=== PATIENT | male | born 1980 | race African-American/Black ===

== ENCOUNTER 2018-12-22 12:07 | Emergency (ER) | payer OTHER ==
[2018-12-22] MEDS ORDERED: TETRACAINE HCL 0.5% 4ML OPTH ONE (13:13)
--- NOTE | 2018-12-22 13:30 | ER ---
Nurse's Notes [facility] Name: Vikas Leroy Age: 38 yrs Sex: Male : 1980 Arrival Date: 12/22/2018 Time: 12:10 Bed 15 Private MD: Diagnosis: Headache;Acute glaucoma, left eye Presentation: 12/22 12:30 Presenting complaint: Patient states: Reports left side headache behind eye that aj started when he woke up this AM. Transition of care: patient was not received from another setting of care. Onset of symptoms was December 22, 2018. Risk Assessment: Do you want to hurt yourself or someone else? Patient reports no desire to harm self or others. Initial Sepsis Screen: Does the patient meet any 2 criteria? No. Patient's initial sepsis screen is negative. Does the patient have a suspected source of infection? No. Patient's initial sepsis screen is negative. Care prior to arrival: None. 12:30 Method Of Arrival: Ambulatory 12:30 Acuity: HERNANDO 3 Triage Assessment: 12:32 Headache History: The patient has had previous headaches and this one is different than previous episodes. General: Appears in no apparent distress. comfortable, Behavior is calm, cooperative, appropriate for age. Pain: Complains of pain in left eye, left aspect of posterior pharynx, right aspect of posterior pharynx, left side of forehead, left temporal area, left pentecostalism and left zygomatic area. EENT: Reports pain when swallowing. Neuro: Level of Consciousness is awake, alert, obeys commands, Oriented to person, place, time, situation, Appropriate for age. Respiratory: Airway is patent Respiratory effort is even, unlabored, Respiratory pattern is regular, symmetrical. Derm: Skin is intact, is healthy with good turgor, Skin is pink, warm \T\ dry. normal. Historical: - Allergies: 12:32 No Known Allergies; aj - Home Meds: 12:32 None [Active]; aj - PMHx: 12:32 None; aj - PSHx: 12:32 None; aj - Immunization history:: Adult Immunizations up to date. - Social history:: Smoking status: Patient/guardian denies using tobacco. - Ebola Screening: : Patient negative for fever greater than or equal to 101.5 degrees Fahrenheit, and additional compatible Ebola Virus Disease symptoms Patient denies exposure to infectious person Patient denies travel to an Ebola-affected area in the 21 days before illness onset No symptoms or risks identified at this time. - Family history:: pertinent for migraines. - Hospitalizations: : No recent hospitalization is reported. Screenin:47 Abuse screen: Denies threats or abuse. Denies injuries from another. Nutritional ch screening: No deficits noted. Tuberculosis screening: No symptoms or risk factors identified. Fall Risk None identified. Assessment: 12:50 Reassessment: Patient appears in no apparent distress at this time. Patient and/or family updated on plan of care and expected duration. Pain level reassessed. Patient is alert, oriented x 3, equal unlabored respirations, skin warm/dry/pink. Pain: Complains of pain in top of head, forehead, left eye and left pentecostalism Pain currently is 7 out of 10 on a pain scale. Pain began suddenly. 12:50 Neuro: Level of Consciousness is awake, alert, obeys commands, Oriented to person, ch place, time, situation, Pediatric Genetic Counselor are equal bilaterally Moves all extremities. Full function Gait is steady, Speech is normal, Facial symmetry appears normal, Facial symmetry: tongue is midline, Pupils are PERRLA, Reports headache. Cardiovascular: Reports None. Respiratory: Airway is patent Respiratory effort is even, unlabored, Breath sounds are clear bilaterally. GI: Abdomen is round non-distended. Derm: Skin is pink, warm \T\ dry. 13:47 Reassessment: Patient appears in no apparent distress at this time. No changes from previously documented assessment. Patient and/or family updated on plan of care and expected duration. Pain level reassessed. Patient is alert, oriented x 3, equal unlabored respirations, skin warm/dry/pink. Vital Signs: 12:32 BP 117 / 76; Pulse 88; Resp 19; Temp 98.3; Pulse Ox 97% on R/A; Weight 99.79 kg; Height aj 6 ft. 1 in. (185.42 cm); 13:47 BP 124 / 74; Pulse 69; Resp 15; Temp 98.8; Pulse Ox 99% on R/A; Pain 4/10; ch 12:32 Body Mass Index 29.03 (99.79 kg, 185.42 cm) aj Ana Coma Score: 13:24 Eye Response: spontaneous(4). Verbal Response: oriented(5). Motor Response: obeys rn commands(6). Total: 15. ED Course: 12:10 Patient arrived in ED. rg4 12:32 Triage completed. aj 12:32 Arm band placed on left wrist. Patient placed in an exam room. aj 12:40 Yimi Kelly MD is Attending Physician. rn 12:51 Aziza Thorne, RN is Primary Nurse. 13:29 Renny Fish MD is Referral Physician. rn 13:47 No apparent distress. Resting quietly. ch 13:47 Patient has correct armband on for positive identification. Bed in low position. Call ch light in reach. Side rails up X 1. Pulse ox on. NIBP on. 13:47 No provider procedures requiring assistance completed. Patient did not have IV access ch during this emergency room visit. Administered Medications: No medications were administered Outcome: 13:29 Discharge ordered by . rn 13:47 Discharged to home ambulatory, with family. 13:47 Condition: stable 13:47 Discharge instructions given to patient, family, Instructed on discharge instructions, follow up and referral plans. Demonstrated understanding of instructions, follow-up care, medications. 14:01 Patient left the ED. Signatures: Aziza Thorne, RN Edilma Jarrell ch RN Yimi Chang MD MD rn Joaquin, Henry, RN RN hj Garcia, Rubi rg4
--- NOTE | 2018-12-22 13:30 | EDPHYS ---
Physician Documentation [facility] Name: Vikas Leroy Age: 38 yrs Sex: Male : 1980 Arrival Date: 12/22/2018 Time: 12:10 Bed 15 Private MD: ED Physician Yimi Kelly HPI: 12/22 13:24 This 38 yrs old Black Male presents to ER via Ambulatory with complaints of Headache, rn Redness of Eye. 13:24 The patient complains of pain to the left eye. The patient describes the headache as rn throbbing. Onset: The symptoms/episode began/occurred this morning. Severity of symptoms: At its worst the pain was moderate, in the emergency department the pain has improved. The patient has not experienced similar symptoms in the past. REports pressure and pain behind left eye, + red left eye, no trauma, no focal neurological problem, no hx of migraines. No fever. + mild blurred vision. No drainage.. Historical: - Allergies: 12:32 No Known Allergies; aj - Home Meds: 12:32 None [Active]; aj - PMHx: 12:32 None; aj - PSHx: 12:32 None; aj - Immunization history:: Adult Immunizations up to date. - Social history:: Smoking status: Patient/guardian denies using tobacco. - Ebola Screening: : Patient negative for fever greater than or equal to 101.5 degrees Fahrenheit, and additional compatible Ebola Virus Disease symptoms Patient denies exposure to infectious person Patient denies travel to an Ebola-affected area in the 21 days before illness onset No symptoms or risks identified at this time. - Family history:: pertinent for migraines. - Hospitalizations: : No recent hospitalization is reported. ROS: 13:24 Constitutional: Negative for fever, chills, and weight loss, Eyes: + left eye pain and rn pressure ENT: Negative for injury, pain, and discharge, Neck: Negative for injury, pain, and swelling, Cardiovascular: Negative for chest pain, palpitations, and edema, Respiratory: Negative for shortness of breath, cough, wheezing, and pleuritic chest pain, Abdomen/GI: Negative for abdominal pain, nausea, vomiting, diarrhea, and constipation, MS/Extremity: Negative for injury and deformity, Skin: Negative for injury, rash, and discoloration, Neuro: + headache, negative for weakness/numbness Exam: 13:24 Constitutional: This is a well developed, well nourished patient who is awake, alert, rn and in no acute distress. Head/Face: Normocephalic, atraumatic. Eyes: + left maxwell with conjunctival injection, PERRL, EOMI, intraocular pressure measured 3 times: 49, 42, 40. No corneal defect ENT: MMM, no swelling or exudate Neck: Trachea midline, no thyromegaly or masses palpated, and no cervical lymphadenopathy. Supple, full range of motion without nuchal rigidity, or vertebral point tenderness. No Meningismus. Skin: Warm, dry MS/ Extremity: Pulses equal, no cyanosis. Neurovascular intact. Full, normal range of motion. Equal circumference. Neuro: Awake and alert, GCS 15, oriented to person, place, time, and situation. Cranial nerves II-XII grossly intact. Motor strength 5/5 in all extremities. Sensory grossly intact. Cerebellar exam normal. Normal gait. Vital Signs: 12:32 BP 117 / 76; Pulse 88; Resp 19; Temp 98.3; Pulse Ox 97% on R/A; Weight 99.79 kg; Height aj 6 ft. 1 in. (185.42 cm); 13:47 BP 124 / 74; Pulse 69; Resp 15; Temp 98.8; Pulse Ox 99% on R/A; Pain 4/10; ch 12:32 Body Mass Index 29.03 (99.79 kg, 185.42 cm) aj [place] Coma Score: 13:24 Eye Response: spontaneous(4). Verbal Response: oriented(5). Motor Response: obeys rn commands(6). Total: 15. MDM: 12:40 Patient medically screened. rn 13:16 ED course: Paged Dr. Fish regarding high left intraocular pressure and concern for rn managed care glaucoma.. 13:24 Differential diagnosis: cluster headache, acute glaucoma. Data reviewed: vital signs, rn nurses notes, and as a result, I will discharge patient. Counseling: I had a detailed discussion with the patient and/or guardian regarding: the historical points, exam findings, and any diagnostic results supporting the discharge/admit diagnosis, the need for outpatient follow up, to return to the emergency department if symptoms worsen or persist or if there are any questions or concerns that arise at home. ED course: Spoke with Dr. Fish's office, he requests patient is sent there directly for further evaluation, gave address to patient and family member, explained importance of going straight there. Headache improved. Normal neuro exam, no need for emergent imaging at this point.. Administered Medications: No medications were administered Disposition: 12/22/18 13:29 Discharged to Home. Impression: Headache, Acute glaucoma, left eye. - Condition is Stable. - Discharge Instructions: Glaucoma. - Medication Reconciliation Form, Thank You Letter, Antibiotic Education, Prescription Opioid Use form. - Follow up: Renny Fish MD; When: Upon discharge from the Emergency Department; Reason: Recheck today's complaints, Continuance of care, Re-evaluation by your physician. - Problem is new. - Symptoms have improved. Signatures: Edilma Thurston RN RN aj Nieto, Roman, MD MD rn Joaquin, Henry, RN RN Corrections: (The following items were deleted from the chart) 14:01 13:29 12/22/2018 13:29 Discharged to Home. Impression: Headache; Acute glaucoma, left hj eye. Condition is Stable. Forms are Medication Reconciliation Form, Thank You Letter, Antibiotic Education, Prescription Opioid Use. Follow up: Renny Fish; When: Upon discharge from the Emergency Department; Reason: Recheck today's complaints, Continuance of care, Re-evaluation by your physician. Problem is new. Symptoms have improved. rn
== END 2018-12-22 14:01 | disposition home or self-care (01) ==
LOC: ER 12:07
DX: R51 Headache (principal); H40.89 Other specified glaucoma
CPT/HCPCS: 99283

== ENCOUNTER 2021-12-15 05:16 | Emergency (ER) | payer OTHER ==
[2021-12-15 06:04] LABS: Absolute Lymphocytes (CBC) 1.6 K/uL (0.7-4.9); Hematocrit 39.2 % (39.6-49.0); Lymphocytes % 25.4 % (15.3-44.8); MPV 9.2 fL (7.6-11.3); RBC Red Blood Cell Count 4.13 M/uL (4.33-5.43)
[2021-12-15 06:22] LABS: Potassium 3.9 mmol/L (3.5-5.1); Troponin High Sensitivity 3.6 pg/mL (<58.9)
--- NOTE | 2021-12-15 09:12 | ER ---
Nurse's Notes [facility] Name: Vikas Leroy Age: 41 yrs Sex: Male : 1980 Arrival Date: 12/15/2021 Time: 05:19 Bed 5 Private MD: Diagnosis: Chest pain, unspecified Presentation: 12/15 05:23 Chief complaint: Patient states: "I got chest pain, it feels like I got hungry and I tw5 got that growl". Onset of symptoms is unknown. 05:23 Method Of Arrival: Ambulatory tw5 05:23 Acuity: HERNANDO 2 tw5 05:25 Coronavirus screen: Vaccine status: Patient reports receiving the 2nd dose of the covid tw5 vaccine. [facility] Provider seeing patient in triage. Ebola Screen: Patient negative for fever greater than or equal to 101.5 degrees Fahrenheit, and additional compatible Ebola Virus Disease symptoms Patient denies exposure to infectious person. Patient denies travel to an Ebola-affected area in the 21 days before illness onset. Initial Sepsis Screen: Does the patient meet any 2 criteria? No. Patient's initial sepsis screen is negative. Does the patient have a suspected source of infection? No. Patient's initial sepsis screen is negative. Risk Assessment: Do you want to hurt yourself or someone else? Patient reports no desire to harm self or others. Triage Assessment: 05:23 General: Appears in no apparent distress. Behavior is calm, cooperative, appropriate tw5 for age. Pain: Quality of pain is described as aching, "Feels like I am hungry.". Cardiovascular: Chest pain is located in chest wall. Historical: - Allergies: 05:26 No Known Allergies; tw5 - PMHx: 05:26 None; tw5 - PSHx: 05:26 None; tw5 - Immunization history:: Flu vaccine is not up to date. - Social history:: Smoking status: Smoking status: Patient denies any tobacco usage or history of. Screenin:10 Abuse screen: Denies threats or abuse. Nutritional screening: No deficits noted. ke1 Tuberculosis screening: No symptoms or risk factors identified. Fall Risk No fall in past 12 months (0 pts). No secondary diagnosis (0 pts). IV access (20 points). Ambulatory Aid- None/Bed Rest/Nurse Assist (0 pts). Gait- Normal/Bed Rest/Wheelchair (0 pts) Mental Status- Oriented to own ability (0 pts). Total [place] Fall Scale indicates No Risk (0-24 pts). Assessment: 06:13 Pain: Complains of pain in chest Pain does not radiate. Pain currently is 0 out of 10 ke1 on a pain scale. at worst was 8 out of 10 on a pain scale. level that patient reports is acceptable is 5 out of 10 on a pain scale. Pain began suddenly, Last night. 07:31 Reassessment: Pt sitting up in bed.. Pain: Pain currently is 0 out of 10 on a pain aa5 scale. Neuro: Level of Consciousness is awake, alert, obeys commands, Oriented to person, place, time, situation. Cardiovascular: Rhythm is sinus rhythm. Respiratory: Airway is patent Respiratory effort is even, unlabored, Respiratory pattern is regular, symmetrical. Derm: Skin is dry, Skin is normal, Skin temperature is warm. 07:46 Reassessment: Repeat troponin drawn and sent to lab. aa5 Vital Signs: 05:23 BP 127 / 89; Pulse 69; Resp 18; Temp 98.1; Pulse Ox 96% on R/A; Weight 106.59 kg; tw5 Height 6 ft. 1 in. (185.42 cm); Pain 8/10; 07:32 BP 110 / 81; Pulse 73; Resp 14 S; Pulse Ox 100% on R/A; Pain 0/10; aa5 08:28 BP 114 / 72; Pulse 68; Resp 15; Pulse Ox 100% ; jl7 09:22 BP 115 / 86; Pulse 66; Resp 15; Pulse Ox 100% ; jl7 05:23 Body Mass Index 31.00 (106.59 kg, 185.42 cm) tw5 ED Course: 05:19 Patient arrived in ED. bp1 05:21 Vikas Salguero DO is Attending Physician. ms3 05:24 Triage completed. tw5 05:26 Arm band placed on right wrist. tw5 05:57 Missed attempt(s): 20 gauge in right antecubital area. ke1 05:57 Inserted saline lock: 22 gauge in left antecubital area, using aseptic technique. ke1 06:10 XRAY Chest (1 view) In Process Unspecified. EDMS 06:10 Sebastián Goodwin, KAJAL is Primary Nurse. ke1 06:11 Bed in low position. Call light in reach. Side rails up X 1. ke1 06:11 Client placed on continuous cardiac and pulse oximetry monitoring. NIBP monitoring ke1 applied. library monitor on. Pulse ox on. NIBP on. 06:11 No provider procedures requiring assistance completed. ke1 06:11 Patient maintains SpO2 saturation greater than 95% on room air. ke1 07:43 Attending Physician role handed off by Vikas Salguero DO id2 07:43 Mireya Lemon MD is Attending Physician. ma2 09:11 Young Pan MD is Referral Physician. id2 09:22 IV discontinued, intact, bleeding controlled, No redness/swelling at site. Pressure jl7 dressing applied. Administered Medications: No medications were administered Medication: :22 VIS not applicable for this client. jl7 Outcome: :11 Discharge ordered by . id2 09:22 Discharged to home ambulatory. jl7 09:22 Condition: stable 09:22 Discharge instructions given to patient, Instructed on discharge instructions, follow up and referral plans. Demonstrated understanding of instructions, follow-up care. 09:22 Patient left the ED. jl7 Signatures: Dispatcher [employer] EDMS Ana Lilia Paz, RN RN aa5 Bela Britt RN RN jl7 Mireya Lemon MD MD ma2 Sims, Marcus, DO DO ms3 Monika Ramey Tiffany tw5 Sebastián Goodwin, KAJAL RN ke1
--- NOTE | 2021-12-15 09:12 | EDPHYS ---
Physician Documentation [facility] Name: Vikas Leroy Age: 41 yrs Sex: Male : 1980 Arrival Date: 12/15/2021 Time: 05:19 Bed 5 Private MD: ED Physician Mireya Lemon HPI: 12/15 05:26 This 41 yrs old Black Male presents to ER via Ambulatory with complaints of Chest Pain ms3 > 30 y/o. 05:26 The patient or guardian reports chest pain that is located primarily in the substernal ms3 area. The pain does not radiate. Associated signs and symptoms: Pertinent negatives: cough, diaphoresis, nausea, shortness of breath, vomiting. The chest pain is described as aching. Duration: The patient or guardian reports a single episode, that is still ongoing, and unchanged. Modifying factors: The symptoms are alleviated by nothing. the symptoms are aggravated by nothing. Severity of pain: At its worst the pain was a 8 / 10 in the emergency department the pain is unchanged. Historical: - Allergies: 05:26 No Known Allergies; tw5 - PMHx: 05:26 None; tw5 - PSHx: 05:26 None; tw5 - Immunization history:: Flu vaccine is not up to date. - Social history:: Smoking status: Smoking status: Patient denies any tobacco usage or history of. ROS: 05:26 Constitutional: Negative for fever, and chills. Respiratory: Negative for shortness of ms3 breath, cough, wheezing, and pleuritic chest pain, Abdomen/GI: Negative for abdominal pain, nausea, vomiting, diarrhea, and constipation, MS/Extremity: Negative for injury and deformity, Skin: Negative for injury, rash, and discoloration. 05:26 Cardiovascular: Positive for chest pain. 05:26 All other systems are negative. Exam: 05:26 Constitutional: This is a well developed, well nourished patient who is awake, alert, ms3 and in no acute distress. Head/Face: Normocephalic, atraumatic. Chest/axilla: Normal chest wall appearance and motion. Nontender with no deformity. Respiratory: Lungs have equal breath sounds bilaterally, clear to auscultation and percussion. No rales, rhonchi or wheezes noted. No increased work of breathing, no retractions or nasal flaring. Abdomen/GI: Soft, non-tender, with normal bowel sounds. No distension or tympany. No guarding or rebound. No evidence of tenderness throughout. Skin: Warm, dry with normal turgor. Normal color with no rashes, no lesions, and no evidence of cellulitis. MS/ Extremity: Pulses equal, no cyanosis. Neurovascular intact. Full, normal range of motion. Psych: Awake, alert, with orientation to person, place and time. Behavior, mood, and affect are within normal limits. 05:26 Cardiovascular: Rate: normal, Rhythm: regular, Pulses: no pulse deficits are appreciated, Heart sounds: normal, normal S1and S2. 05:30 ECG was reviewed by the Attending Physician. ms3 Vital Signs: 05:23 BP 127 / 89; Pulse 69; Resp 18; Temp 98.1; Pulse Ox 96% on R/A; Weight 106.59 kg; tw5 Height 6 ft. 1 in. (185.42 cm); Pain 8/10; 07:32 BP 110 / 81; Pulse 73; Resp 14 S; Pulse Ox 100% on R/A; Pain 0/10; aa5 08:28 BP 114 / 72; Pulse 68; Resp 15; Pulse Ox 100% ; jl7 09:22 BP 115 / 86; Pulse 66; Resp 15; Pulse Ox 100% ; jl7 05:23 Body Mass Index 31.00 (106.59 kg, 185.42 cm) tw5 MDM: 05:21 Patient medically screened. ms3 07:00 Transition of care: After a detail discussion of the patient's case, care is ms3 transferred to Mireya eLmon MD. 07:45 Differential diagnosis: esophagitis, gastroesophageal reflux disease (GERD), ma2 pancreatitis, pneumonia. ED course: Received signout from Dr. Salguero on this patient, as low risk chest pain pending chest x-ray and lab work, likely discharge if everything is negative. I evaluated the patient and he is a 41-year-old male had epigastric abdominal burning and reflux symptoms that resolved, symptoms been constant all day resolved at this time, no vomiting diarrhea no cigarette smoking does not take aspirin never had any heart issues is JONNY score 0 heart score 0. He does not use recreational drugs or cocaine. Chest pain is reproducible on exam as well. Can be discharged after set of troponin. He will follow-up with pc analyst in 1 day for further evaluation as well.. 09:10 Data reviewed: vital signs, nurses notes, lab test result(s). ma2 12/15 05:21 Order name: Basic Metabolic Panel; Complete Time: 06:27 ms3 12/15 05:21 Order name: CBC with Diff; Complete Time: 06:27 ms3 12/15 05:21 Order name: Troponin HS; Complete Time: 06:27 ms3 12/15 05:21 Order name: XRAY Chest (1 view) 3 12/15 05:21 Order name: EKG; Complete Time: 05:22 ms3 12/15 07:35 Order name: Troponin High Sensitivity; Complete Time: 08:37 ma2 12/15 05:21 Order name: Cardiac monitoring; Complete Time: 05:56 ms3 12/15 05:21 Order name: EKG - Nurse/Tech; Complete Time: 05:35 ms3 12/15 05:21 Order name: IV Saline Lock; Complete Time: 05:56 ms3 12/15 05:21 Order name: Labs collected and sent; Complete Time: 05:56 ms3 12/15 05:21 Order name: O2 Per Protocol; Complete Time: 05:57 ms3 12/15 05:21 Order name: O2 Sat Monitoring; Complete Time: 05:57 ms3 EC:30 Rate is 75 beats/min. Rhythm is regular. QRS [place] is Normal. QRS interval is normal. ms3 Clinical impression: Normal ECG. Interpreted by me. Reviewed by me. Administered Medications: No medications were administered Disposition Summary: 12/15/21 09:11 Discharge Ordered Location: Home ma2 Condition: Stable ma2 Diagnosis - Chest pain, unspecified ma2 Followup: ms3 - With: - When: 1 - 2 days - Reason: Recheck today's complaints Discharge Instructions: - Discharge Summary Sheet ms3 - Nonspecific Chest Pain, Adult ms3 Forms: - Medication Reconciliation Form ma2 - Thank You Letter ma2 - Antibiotic Education ma2 - Prescription Opioid Use ma2 - Work release form eb Signatures: Dispatcher [employer] EDMS Mireya Lemon MD MD ma2 Vikas Salguero DO DO ms3 Eileen Martell tw5
[2021-12-15 17:44] VITALS: TEMP 98.1
[2021-12-15 17:45] VITALS: O2SAT 100
[2021-12-15 17:47] VITALS: BP 114/72
--- NOTE | 2021-12-17 10:08 | EKG ---
Test Date: 2021-12-15 Test Time: 05:30:04 Mannequin Maker: IRENE MEASUREMENT RESULTS: Intervals: Rate: 75 IN: 142 QRSD: 86 QT: 366 QTc: 408 [place]: P: 59 IN: 142 QRS: 46 T: 2 INTERPRETIVE STATEMENTS: Normal sinus rhythm Normal ECG No previous ECG available for comparison Electronically Signed On 12-17-21 10:03:01 CDT by Bernard Retana
--- NOTE | 2021-12-17 14:50 | RAD REPORT ---
EXAM DESCRIPTION: RAD - Chest Single View - 12/15/2021 6:08 am CLINICAL HISTORY: Chest pain COMPARISON: None. TECHNIQUE: AP portable chest image was obtained . FINDINGS: Lungs are clear. Heart and vasculature are normal. No measurable pleural effusion and no p neumothorax. No gross bony abnormality seen. IMPRESSION: No acute cardiopulmonary process.
== END 2021-12-15 09:22 | disposition home or self-care (01) ==
LOC: ER 05:16
DX: R07.9 Chest pain, unspecified (principal); R05.9 Cough, unspecified; R11.0 Nausea
CPT/HCPCS: 36415; 71045; 80048; 84484; 85025; 93005; 99285

== ENCOUNTER 2022-10-07 16:54 | Emergency (ER) | payer OTHER ==
--- NOTE | 2022-10-07 17:12 | EDPHYS ---
Physician Documentation [facility] Name: Vikas Leroy Age: 42 yrs Sex: Male : 1980 Arrival Date: 10/07/2022 Time: 16:56 Bed IW10 Private MD: ED Physician Vikas Salguero HPI: 10/07 17:08 This 42 yrs old Black Male presents to ER via Unassigned with complaints of Laceration kb to Shoulder. 17:08 The patient has a laceration related to: fighting, occurred at home, and there are no kb complicating factors. The injury was accidental. The laceration(s) is(are) located on the anterior aspect of left shoulder. Onset: The symptoms/episode began/occurred 2 day(s) ago. Associated signs and symptoms: The patient has no apparent associated signs or symptoms. The patient has not experienced similar symptoms in the past. The patient has not recently seen a physician. Historical: - Allergies: 17:31 No Known Allergies; aa5 - Home Meds: 17:31 None [Active]; aa5 - PMHx: 17:31 None; aa5 - Immunization history:: Last tetanus immunization: unknown. - Social history:: Smoking status: Patient denies any tobacco usage or history of. ROS: 17:08 Constitutional: Negative for fever, chills, and weight loss. kb 17:08 Skin: Positive for laceration(s), of the anterior aspect of left shoulder. 17:08 All other systems are negative. Exam: 17:08 Constitutional: This is a well developed, well nourished patient who is awake, alert, kb and in no acute distress. Head/Face: Normocephalic, atraumatic. ENT: Moist Mucous membranes Respiratory: Respirations even and unlabored. No increased work of breathing. Talking in full sentences MS/ Extremity: Pulses equal, no cyanosis. Neurovascular intact. Full, normal range of motion. Neuro: Awake and alert, GCS 15, oriented to person, place, time, and situation. Moves all extremities. Normal gait. Psych: Awake, alert, with orientation to person, place and time. Behavior, mood, and affect are within normal limits. 17:08 Skin: injury, laceration(s), the wound is approximately 2.5 cm(s), of the anterior aspect of left shoulder, that can be described as clean, no foreign body, linear, without bleeding, +purulent discharge. MDM: 17:02 Patient medically screened. kb 17:08 Differential diagnosis: superficial laceration, infected wound. Data reviewed: vital kb signs, nurses notes. Counseling: I had a detailed discussion with the patient and/or guardian regarding: the historical points, exam findings, and any diagnostic results supporting the discharge/admit diagnosis, the need for outpatient follow up, a family practitioner, to return to the emergency department if symptoms worsen or persist or if there are any questions or concerns that arise at home. ED course: Patient is a 42-year-old male who presents for laceration to anterior aspect of left shoulder that occurred 2 days ago while "wrestling." On exam patient has 2.5 cm laceration to anterior aspect of left shoulder with minimal purulent discharge. Pain upon palpation around area. No swelling, redness, abscess. Educated on need for antibiotics and tetanus shot. Educated on wound care. Verbal understanding received.. 10/07 17:04 Order name: Wound Care: clean and dress ; Complete Time: 17:31 kb Administered Medications: 17:43 Drug: Boostrix Tdap 0.5 ml Route: IM; Site: right deltoid; eh3 17:43 Follow up: Response: (VIS) Vaccine information sheet provided today. Questions and/or eh3 concerns addressed. VIS edition date: Mar 09, 2021.; No adverse reaction 17:43 Drug: Bactrim (trimethoprim-sulfamethoxazole) (160 mg-800 mg (DS) 1 tablet Route: PO; eh3 17:43 Follow up: Response: No adverse reaction eh3 Disposition Summary: 10/07/22 17:11 Discharge Ordered Location: Home kb Condition: Stable kb Diagnosis - Laceration without foreign body of left upper arm, initial encounter - shoulder kb - Local infection of the skin and subcutaneous tissue, unspecified kb Followup: kb - With: Emergency Department - When: As needed - Reason: Worsening of condition Followup: kb - With: Private Physician - When: 2 - 3 days - Reason: Recheck today's complaints, Continuance of care, Re-evaluation by your physician Discharge Instructions: - Discharge Summary Sheet kb - Nonsutured Laceration Care kb - Wound Infection, [id number] kb Forms: - Medication Reconciliation Form kb - Thank You Letter kb - Antibiotic Education kb - Prescription Opioid Use kb Prescriptions: - Bactrim DS 800-160 mg Oral Tablet - take 1 tablet by ORAL route every 12 hours for 10 days; 20 tablet; Refills: 0, kb Product Selection Permitted Signatures: Page Palmer, Ana Lilia Lopez, RN RN aa5 Johana Fraire RN RN eh3
[2022-10-07] MEDS ORDERED: TDAP (DIPHTH,PERTUSS(ACELL),TET VAC) 0.5 ML VIAL IMVAC ONE (17:41)
[2022-10-07] MEDS ORDERED: SMZ./TMP. 800/160 MG TABLET ONE (17:41)
--- NOTE | 2022-10-07 17:46 | ER ---
Nurse's Notes [facility] Name: Vikas Leroy Age: 42 yrs Sex: Male : 1980 Arrival Date: 10/07/2022 Time: 16:56 Bed IW10 Private MD: Diagnosis: Laceration without foreign body of left upper arm, initial encounter-shoulder;Local infection of the skin and subcutaneous tissue, unspecified Presentation: 10/07 17:32 Chief complaint: Patient states: "I was messing around and I cut my arm on a tree". aa5 Incident occurred 2 days ago. 17:32 Acuity: HERNANDO 5 aa5 17:44 Coronavirus screen: Vaccine status: Patient reports receiving the 2nd dose of the covid eh3 vaccine. Ebola Screen: No symptoms or risks identified at this time. Initial Sepsis Screen: Does the patient meet any 2 criteria? No. Patient's initial sepsis screen is negative. Does the patient have a suspected source of infection? No. Patient's initial sepsis screen is negative. Risk Assessment: Do you want to hurt yourself or someone else? Patient reports no desire to harm self or others. Onset of symptoms was October 07, 2022. 17:44 Method Of Arrival: Ambulatory eh3 Triage Assessment: 17:44 General: Appears in no apparent distress. uncomfortable, Behavior is calm, cooperative, eh3 appropriate for age. Pain: Complains of pain in left arm. Historical: - Allergies: 17:31 No Known Allergies; aa5 - Home Meds: 17:31 None [Active]; aa5 - PMHx: 17:31 None; aa5 - Immunization history:: Last tetanus immunization: unknown. - Social history:: Smoking status: Patient denies any tobacco usage or history of. Screenin:44 [facility] ED Fall Risk Assessment (Adult) Score/Fall Risk Level 0 - 2 = Low Risk. Abuse eh3 screen: Denies threats or abuse. Denies injuries from another. Nutritional screening: No deficits noted. Tuberculosis screening: No symptoms or risk factors identified. ED Course: 16:56 Patient arrived in ED. rg4 16:57 Page Palmer FNP-C is PHCP. kb 16:57 Vikas Salguero DO is Attending Physician. kb 17:32 Arm band placed on. aa5 17:33 Triage completed. aa5 17:44 No provider procedures requiring assistance completed. Patient did not have IV access eh3 during this emergency room visit. 17:45 Patient has correct armband on for positive identification. eh3 Administered Medications: 17:43 Drug: Boostrix Tdap 0.5 ml Route: IM; Site: right deltoid; eh3 17:43 Follow up: Response: (VIS) Vaccine information sheet provided today. Questions and/or eh3 concerns addressed. VIS edition date: Mar 09, 2021.; No adverse reaction 17:43 Drug: Bactrim (trimethoprim-sulfamethoxazole) (160 mg-800 mg (DS) 1 tablet Route: PO; eh3 17:43 Follow up: Response: No adverse reaction eh3 Medication: 17:45 Vaccine Information Statement (VIS) provided today. Questions and/or concerns eh3 addressed. VIS edition date: March 09, 2021. Outcome: 17:11 Discharge ordered by . kb 17:44 Discharged to home ambulatory. eh3 17:44 Condition: stable 17:44 Discharge instructions given to patient, Instructed on discharge instructions, follow up and referral plans. medication usage, wound care, Demonstrated understanding of instructions, follow-up care, medications, wound care, Prescriptions given X 1. 17:45 Patient left the ED. zm Signatures: Page Palmer, [employer]-Ana Lilia Patel, RN RN [id number] Marisol Mace Erin, RN RN 3 Susanne Campo
== END 2022-10-07 17:45 | disposition home or self-care (01) ==
LOC: ER 16:54
DX: S41.012A Laceration without foreign body of left shoulder, initial encounter (principal); L08.9 Local infection of the skin and subcutaneous tissue, unspecified
CPT/HCPCS: 96372; 99283

== ENCOUNTER 2023-01-15 15:54 | Emergency (ER) | payer OTHER ==
--- NOTE | 2023-01-15 16:22 | EDPHYS ---
Physician Documentation [facility] Name: Vikas Leroy Age: 42 yrs Sex: Male : 1980 Arrival Date: 01/15/2023 Time: 15:54 Bed 12 Private MD: ED Physician Tino Soriano HPI: 01/15 16:18 This 42 yrs old Black Male presents to ER via Ambulatory with complaints of Swollen cp eyelid. 16:18 Onset: The symptoms/episode began/occurred 3 day(s) ago. Associated signs and symptoms: cp The patient has no apparent associated signs or symptoms. swelling started with right upper eyelid and now noticing swelling to left upper eyelid. Historical: - Allergies: 16:03 No Known Allergies; mb9 - Home Meds: 16:03 None [Active]; mb9 - PMHx: 16:03 None; mb9 - PSHx: 16:03 None; mb9 - Immunization history:: Adult Immunizations up to date. - Social history:: Smoking status: Patient denies any tobacco usage or history of. ROS: 16:18 Constitutional: Negative for body aches, chills, fever. cp 16:18 Eyes: Negative for discharge, redness, visual disturbance. 16:18 ENT: Positive for swelling of left upper eyelid and right upper eyelid, Negative for ear pain, sore throat, difficulty swallowing, difficulty handling secretions. Exam: 16:19 Head/Face: Normocephalic, atraumatic. cp 16:19 Constitutional: The patient appears in no acute distress, alert, awake, non-toxic, well developed, well nourished. 16:19 Eyes: Pupils: equal, round, and reactive to light and accomodation, Extraocular movements: intact throughout, Conjunctiva: normal, no exudate, no injection, Sclera: no appreciated abnormality, small abscess noted right upper eyelid with mild swelling across lid. 16:19 ENT: External ear(s): are unremarkable, Nose: is normal, Mouth: Lips: moist, Oral mucosa: pink and intact, moist, Posterior pharynx: Airway: no evidence of obstruction, patent. Vital Signs: 16:01 BP 122 / 81; Pulse 75; Resp 16; Temp 97.9; Pulse Ox 100% on R/A; Weight 108.86 kg; mb9 Height 6 ft. 2 in. ; Pain 0/10; 16:01 Body Mass Index 30.81 (108.86 kg, 187.96 cm) mb9 16:01 Pain Scale: Adult mb9 MDM: 16:07 Patient medically screened. cp 16:15 Differential diagnosis: conjunctivitis, stye, hordeolum, cellulitis. cp 16:21 Data reviewed: vital signs, nurses notes, and as a result, I will discharge patient. cp 16:21 Counseling: I had a detailed discussion with the patient and/or guardian regarding: the cp historical points, exam findings, and any diagnostic results supporting the discharge/admit diagnosis. Administered Medications: No medications were administered Disposition Summary: 01/15/23 16:21 Discharge Ordered Location: Home cp Problem: new cp Symptoms: are unchanged cp Condition: Stable cp Diagnosis - Hordeolum externum right upper eyelid cp Followup: cp - With: Melly Santos MD - When: 2 - 3 days - Reason: Worsening of condition Discharge Instructions: - Discharge Summary Sheet cp - Stye cp Forms: - Medication Reconciliation Form cp - Thank You Letter cp - Antibiotic Education cp - Prescription Opioid Use cp Prescriptions: - Augmentin 875-125 mg Oral Tablet - take 1 tablet by ORAL route every 12 hours for 10 days; 20 tablet; Refills: 0, cp Product Selection Permitted Signatures: Braulio Arauz PA PA cp Breneman, Mary Beth, RN RN mb9 Corrections: (The following items were deleted from the chart) 01/16 15:50 01/15 16:07 Differential diagnosis: conjunctivitis, stye, hordeolum, cellulitis cp cp
--- NOTE | 2023-01-15 16:22 | ER ---
Nurse's Notes [facility] Name: Vikas Leroy Age: 42 yrs Sex: Male : 1980 Arrival Date: 01/15/2023 Time: 15:54 Bed 12 Private MD: Diagnosis: Hordeolum externum right upper eyelid Presentation: 01/15 16:01 Chief complaint: Patient states: "My eyelids started swelling up since Friday. I can mb9 still see, no blurred vision. My eyes feel sore and I feel like there is pus under my eyelids". Coronavirus screen: Vaccine status: Patient reports receiving the 2nd dose of the covid vaccine. Ebola Screen: No symptoms or risks identified at this time. Initial Sepsis Screen: Does the patient meet any 2 criteria? No. Patient's initial sepsis screen is negative. Does the patient have a suspected source of infection? No. Patient's initial sepsis screen is negative. Risk Assessment: Do you want to hurt yourself or someone else? Patient reports no desire to harm self or others. Onset of symptoms was January 15, 2023. 16:01 Method Of Arrival: Ambulatory 9 16:01 Acuity: HERNANDO 4 mb9 Triage Assessment: 16:03 General: Appears in no apparent distress. Behavior is calm, cooperative, appropriate mb9 for age. Pain: Denies pain. EENT: Eyes pt states bilateral eyes feel sore and swollen. Neuro: [place] Agitation-Sedation Scale (RASS): 0 - Alert and Calm Level of Consciousness is awake, alert, obeys commands, Oriented to person, place, time, situation, Appropriate for age. Cardiovascular: Patient's skin is warm and dry. Respiratory: Airway is patent Respiratory effort is even, unlabored, Respiratory pattern is regular, symmetrical. Derm: Skin is pink, warm \\T\\ dry. Musculoskeletal: Range of motion: intact in all extremities. Historical: - Allergies: 16:03 No Known Allergies; mb9 - Home Meds: 16:03 None [Active]; mb9 - PMHx: 16:03 None; mb9 - PSHx: 16:03 None; mb9 - Immunization history:: Adult Immunizations up to date. - Social history:: Smoking status: Patient denies any tobacco usage or history of. Screenin:18 [facility] ED Fall Risk Assessment (Adult) History of falling in the last 3 months, mb9 including since admission No falls in past 3 months (0 pts) Confusion or Disorientation No (0 pts) Intoxicated or Sedated No (0 pts) Impaired Gait No (0 pts) Mobility Assist Device Used No (0 pt) Altered Elimination No (0 pt) Score/Fall Risk Level 0 - 2 = Low Risk Oriented to surroundings, Maintained a safe environment, Educated pt \\T\\ family on fall prevention, incl call for assistance when getting out of bed. Abuse screen: Denies threats or abuse. Nutritional screening: No deficits noted. Tuberculosis screening: No symptoms or risk factors identified. Assessment: 16:04 Reassessment: see triage assessment. mb9 16:32 Reassessment: No changes from previously documented assessment. Patient and/or family mb9 updated on plan of care and expected duration. Pain level reassessed. Patient is alert, oriented x 3, equal unlabored respirations, skin warm/dry/pink. Vital Signs: 16:01 BP 122 / 81; Pulse 75; Resp 16; Temp 97.9; Pulse Ox 100% on R/A; Weight 108.86 kg; mb9 Height 6 ft. 2 in. ; Pain 0/10; 16:01 Body Mass Index 30.81 (108.86 kg, 187.96 cm) mb9 16:01 Pain Scale: Adult mb9 ED Course: 15:58 Patient arrived in ED. im 15:59 Braulio Arauz PA is PHCP. cp 15:59 Tino Soriano MD is Attending Physician. cp 16:03 Triage completed. mb9 16:03 Arm band placed on. mb9 16:04 Placed in gown. Bed in low position. Call light in reach. Side rails up X 1. Client mb9 placed on continuous cardiac and pulse oximetry monitoring. NIBP monitoring applied. 16:17 Ora Lynch, KAJAL is Primary Nurse. mb9 16:18 No provider procedures requiring assistance completed. mb9 16:21 Melly Santos MD is Referral Physician. cp 16:32 Patient did not have IV access during this emergency room visit. mb9 Administered Medications: No medications were administered Medication: 16:05 VIS not applicable for this client. mb9 Outcome: 16:21 Discharge ordered by . cp 16:32 Discharged to home ambulatory. mb9 16:32 Condition: stable 16:32 Discharge instructions given to patient, Instructed on discharge instructions, follow up and referral plans. Demonstrated understanding of instructions, follow-up care, medications, Prescriptions given X 1. 16:32 Patient left the ED. mb9 Signatures: Braulio Arauz PA PA cp Breneman, Ora Whitaker, RN RN mb9 Mehreen Atkinson Corrections: (The following items were deleted from the chart) 16:04 16:01 Pulse 75bpm; Resp 16bpm; Pulse Ox 100% RA; Temp 97.9F; 108.86 kg; Height 6 ft. 2 mb9 in.; BMI: 30.8; Pain 0/10, Adult; mb9
[2023-01-15 16:39] VITALS: BP 122/81; TEMP 97.9; O2SAT 100
== END 2023-01-15 16:32 | disposition home or self-care (01) ==
LOC: ER 15:54
DX: H00.011 Hordeolum externum right upper eyelid (principal)
CPT/HCPCS: 99283

== ENCOUNTER 2024-10-05 09:58 | Emergency (ER) | payer BC, OTHER ==
[2024-10-05 11:36] LABS: Influenza A Ag Negative; Influenza B Ag Negative; SARS-CoV-2 Antigen Rapid Res Negative (Negative)
--- NOTE | 2024-10-05 12:21 | ER ---
Nurse's Notes [facility] Name: Vikas Leroy Age: 44 yrs Sex: Male : 1980 Arrival Date: 10/05/2024 Time: 09:58 Bed IW3 Private MD: Diagnosis: Headache;Diarrhea, unspecified Presentation: 10/05 11:00 Chief complaint: Patient states: headache and diarrhea that began yesterday. Pt ss believes there may be a chance he got food poisoning from eating [employer]. Coronavirus screen: Client denies travel out of the [place] in the last 14 days. Ebola Screen: Patient denies exposure to infectious person. Patient denies travel to an Ebola-affected area in the 21 days before illness onset. Initial Sepsis Screen: Does the patient meet any 2 criteria? No. Patient's initial sepsis screen is negative. Does the patient have a suspected source of infection? No. Patient's initial sepsis screen is negative. Risk Assessment: Do you want to hurt yourself or someone else? Patient reports no desire to harm self or others. Onset of symptoms was October 04, 2024. 11:00 Method Of Arrival: Ambulatory ss 11:00 Acuity: HERNANDO 3 ss Historical: - Allergies: 11:02 No Known Allergies; ss - Home Meds: 11:02 None [Active]; ss - PMHx: 11:02 None; ss - PSHx: 11:02 None; ss - Infectious Disease History:: Denies. - Social history:: Smoking status: Patient denies any tobacco usage or history of. Assessment: 12:35 Reassessment: Patient appears in no apparent distress at this time. Patient and/or ss family updated on plan of care and expected duration. Pain level reassessed. Vital Signs: 11:00 BP 133 / 87; Pulse 81; Resp 14; Temp 97.9; Pulse Ox 100% ; Weight 99.79 kg; Height 6 ss ft. 1 in. ; Pain 0/10; 11:00 Body Mass Index 29.03 (99.79 kg, 185.42 cm) ss 11:00 Pain Scale: Adult ss ED Course: 10:01 Patient arrived in ED. mr 10:10 Vikas Salguero DO is Attending Physician. ms3 11:02 Triage completed. ss 11:02 Arm band placed on left wrist. ss 11:08 COVID-19 Ag + Flu A+B Ag Sent. ss 12:20 Ino Lu DO is Referral Physician. ms3 12:35 No provider procedures requiring assistance completed. Patient did not have IV access ss during this emergency room visit. Administered Medications: No medications were administered Outcome: 12:20 Discharge ordered by MD. ms3 12:35 Discharged to home ambulatory, ss 12:35 Condition: good 12:35 Discharge instructions given to patient, Instructed on discharge instructions, follow up and referral plans. Demonstrated understanding of instructions, follow-up care, 12:36 Patient left the ED. ss Signatures: Ora Hector, Reg Reg mr Carolyn Nunez, RN RN Vikas Salguero DO DO ms3
--- NOTE | 2024-10-05 12:21 | EDPHYS ---
Physician Documentation [facility] Name: Vikas Leroy Age: 44 yrs Sex: Male : 1980 Arrival Date: 10/05/2024 Time: 09:58 Bed IW3 Private MD: ED Physician Vikas Salguero HPI: 10/05 10:33 This 44 yrs old Black Male presents to ER via Unassigned with complaints of Headache, ms3 Diarrhea. 10:33 44-year-old male with no past medical history presents to the emergency department for ms3 nausea vomiting and headache that developed on Friday after eating at [employer]. Patient states his symptoms have improved today and his headache is resolved. Patient states today he has a decrease in taste. Patient endorses nausea and diarrhea. Patient denies vomiting.. Historical: - Allergies: 11:02 No Known Allergies; ss - Home Meds: 11:02 None [Active]; ss - PMHx: 11:02 None; ss - PSHx: 11:02 None; ss - Infectious Disease History:: Denies. - Social history:: Smoking status: Patient denies any tobacco usage or history of. ROS: 10:37 Constitutional: Negative for fever, and chills. Cardiovascular: Negative for chest ms3 pain, and palpitations. Respiratory: Negative for shortness of breath, cough, wheezing, and pleuritic chest pain, 10:37 Abdomen/GI: Positive for diarrhea, Negative for nausea and vomiting, 10:37 Neuro: Positive for headache, Exam: 10:37 Constitutional: This is a well developed, well nourished patient who is awake, alert, ms3 and in no acute distress. Cardiovascular: Regular rate and rhythm with a normal S1 and S2. No gallops, murmurs, or rubs. Normal PMI, no JVD. No pulse deficits. Respiratory: Lungs have equal breath sounds bilaterally, clear to auscultation and percussion. No rales, rhonchi or wheezes noted. No increased work of breathing, no retractions or nasal flaring. Abdomen/GI: Soft, non-tender, with normal bowel sounds. No distension or tympany. No guarding or rebound. No evidence of tenderness throughout. Skin: Warm, dry with normal turgor. Normal color with no rashes, no lesions, and no evidence of cellulitis. MS/ Extremity: Pulses equal, no cyanosis. Neurovascular intact. Full, normal range of motion. Vital Signs: 11:00 BP 133 / 87; Pulse 81; Resp 14; Temp 97.9; Pulse Ox 100% ; Weight 99.79 kg; Height 6 ss ft. 1 in. ; Pain 0/10; 11:00 Body Mass Index 29.03 (99.79 kg, 185.42 cm) ss 11:00 Pain Scale: Adult ss MDM: 10:33 Medical Screening Exam initiated ms3 10:37 Differential diagnosis: Flu vs COVID vs Viral Illness. ms3 16:01 Data reviewed: vital signs, nurses notes, lab test result(s), and as a result, I will ms3 discharge patient. Counseling: I had a detailed discussion with the patient and/or guardian regarding the historical points, exam findings, and any diagnostic results supporting the discharge/admit diagnosis, lab results, the need for outpatient follow up, to return to the emergency department if symptoms worsen or persist or if there are any questions or concerns that arise at home. Special discussion: I discussed with the patient/guardian in detail that at this point there is no indication for admission to the hospital. It is understood, however, that if the symptoms persist or worsen the patient needs to return immediately for re-evaluation. ED course: Discussed negative flu and COVID results with patient. On reevaluation patient is alert and oriented x 4, in no apparent distress, nontoxic-appearing, speaking full sentences, ambulatory in the emergency department. Patient to follow-up Dr. Lu in 2 to 3 days. Patient understands and agrees with plan. All questions were answered. Return precautions discussed include worsening symptoms, or any other concerns. 10/05 10:33 Order name: COVID-19 Ag + Flu A+B Ag; Complete Time: 11:38 ms3 Administered Medications: No medications were administered Disposition Summary: 10/05/24 12:20 Discharge Ordered Notes: Location: Home ms3 Condition: Stable ms3 Diagnosis - Headache ms3 - Diarrhea, unspecified ms3 Followup: ms3 - With: Ino Lu DO - When: 2 - 3 days - Reason: Recheck today's complaints Discharge Instructions: - Discharge Summary Sheet ms3 - Food Choices to Help Relieve Diarrhea, Adult ms3 - Diarrhea, Adult ms3 - General Headache Without Cause ms3 Forms: - Work release form ss - Medication Reconciliation Form ms3 - Antibiotic Education ms3 - Prescription Opioid Use ms3 - Patient Portal Instructions ms3 - Leadership Thank You Letter ms3 Signatures: Dispatcher [employer] Carolyn Christianson, RN RN ss Vikas Salguero DO DO ms3
[2024-10-05 12:42] VITALS: BP 133/87; TEMP 97.9; O2SAT 100
== END 2024-10-05 12:36 | disposition home or self-care (01) ==
LOC: ER 09:58
DX: R51.9 Headache, unspecified (principal); R19.7 Diarrhea, unspecified; Z11.52 Encounter for screening for COVID-19
CPT/HCPCS: 36415; 87428